=== PATIENT | female | born 1995 | race Caucasian/White ===

== ENCOUNTER 2020-01-09 09:47 | Emergency (ER) | payer OTHER ==
[~2020-01-09] VITALS: Ht 180.3 cm; Wt 81.8 kg
[2020-01-09] MEDS ORDERED: HydrOXYzine HCL 50 MG TABLET PO ONE (11:00)
[2020-01-09 12:02] VITALS: BP 134/84
== END 2020-01-09 12:39 | disposition home or self-care (01) ==
LOC: EMS 09:55 → EDBD 09:55 → EMS 12:39
DX: F41.9 Anxiety disorder, unspecified (principal)